=== PATIENT | female | born 1990 | race African-American/Black ===

== ENCOUNTER 2017-10-13 01:52 | Emergency (ER) | payer BC ==
[2017-10-13] MEDS ORDERED: 0.9 % SODIUM CHLORIDE 1,000 ML IV ONE ×2 (01:58→02:21)
[2017-10-13] MEDS ORDERED: ONDANSETRON HCL/PF 4 MG/ 2ML VIAL IVP ONE (02:21)
[2017-10-13 02:33] LABS: BASOPHILS % 0.3 (0.0-1.5); EOSINOPHILS % 1.7 % (0.0-6.8); MEAN CORPUSCULAR HEMOGLOBIN 33.7 pg (28.0-34.0); MEAN CORPUSCULAR VOLUME 100.9 fl (80.0-100.0); MONOCYTES % 3.2 % (0.0-11.0); NEUTROPHILS # 6.8 # k/uL (1.4-7.7)
[2017-10-13 02:43] LABS: eGFR (African) > 60; eGFR (Non-African) > 60
--- NOTE | 2017-10-13 03:31 | ED Physician Documentation ---
General Adult - HISTORIAN Historian: patient - HPI Stated Complaint: dizzy Chief Complaint: General Adult Further Comments: yes (27 year old female patient presents with complaints of dizziness and nausea. Patient states she got up late for work tonight, didn't eat, went to work and became dizzy and nauseated.) - ROS CONST: recent illness (Flu - 2 weeks ago). denies: fever, sweating, chills EYES/ENT: nasal congestion. denies: problems with vision, sore throat, nasal drainage CVS/RESP: none GI/: nausea. denies: abdominal pain, problems urinating, vomiting, diarrhea MS/SKIN/LYMPH: none NEURO/PSYCH: denies: headache - PAST HX Past History: none Allergies/Adverse Reactions: Allergies Allergy/AdvReac Type Severity Reaction Status Date / Time No Known Allergies Allergy Verified 10/13/17 02:43 Home Medications: Ambulatory Orders Medication Instructions Recorded NK [NK] 10/13/17 - SOCIAL HX Smoking History: cigarettes - FAMILY HX Family History: No - VITAL SIGNS Vital Signs: Vital Signs Temp Pulse Resp BP Pulse Ox 98.1 F 84 16 156/80 98 10/13/17 01:52 10/13/17 01:52 10/13/17 01:52 10/13/17 01:52 10/13/17 01:52 - REVIEWED ASSESSMENTS Nursing Assessment Reviewed: Yes Vitals Reviewed: Yes ED Results Lab/Radiology - Lab Results Lab Results: Lab Results 10/13/17 10/13/17 02:27 02:27 WBC 8.30 K/ul K/ul (4.00-12.00) RBC 4.14 M/ul M/ul (3.90-5.20) Hgb 14.0 g/dL g/dL (12.0-16.0) Hct 41.8 % % (34.5-46.5) MCV 100.9 fl H fl (80.0-100.0) MCH 33.7 pg pg (28.0-34.0) MCHC 33.4 g/dL g/dL (30.0-36.0) RDW 12.7 % % (11.3-14.3) Plt Count 207 K/mm3 K/mm3 (130-400) Neut % (Auto) 82.2 % H % (39.0-79.0) Lymph % (Auto) 11.5 % L % (16.0-50.0) [place] % (Auto) 3.2 % % (0.0-11.0) Eos % (Auto) 1.7 % % (0.0-6.8) Baso % (Auto) 0.3 (0.0-1.5) Neut # (Auto) 6.8 # k/uL # k/uL (1.4-7.7) Lymph # (Auto) 1.0 # k/uL # k/uL (0.6-4.0) [place] # (Auto) 0.3 # k/uL # k/uL (0.0-0.9) Eos # (Auto) 0.1 # k/uL # k/uL (0.0-0.6) Baso # (Auto) 0.0 # k/uL # k/uL (0.0-0.5) Reactive Lymphs % 1.0 % % (0.0-5.0) Reactive Lymphs # 0.1 # k/uL # k/uL (0.0-0.8) Sodium 139 mmol/L mmol/L (136-145) Potassium 4.0 mmol/L mmol/L (3.5-5.1) Chloride 102 mmol/L mmol/L (98-107) Carbon Dioxide 24 mmol/L mmol/L (22-30) BUN 5 mg/dL L mg/dL (7-17) Creatinine 0.70 mg/dL mg/dL (0.52-1.04) Estimated Creat Clear 133 Est GFR ( Amer) > 60 (60 - ) Est GFR (Non-Af Amer) > 60 (60 - ) Glucose 87 mg/dL mg/dL (74-106) Calcium 9.6 mg/dL mg/dL (8.4-10.2) Total Bilirubin 1.5 mg/dL H mg/dL (0.2-1.3) AST 30 U/L U/L (15-46) ALT 23 U/L U/L (13-69) Alkaline Phosphatase 94 U/L U/L (38-126) Total Protein 8.7 g/dL H g/dL (6.3-8.2) Albumin 5.0 g/dL g/dL (3.5-5.0) - Orders Orders: ED Orders Category Date Time Status Place IV Lock 1T Care 10/13/17 02:21 Active CBC/PLATELET/DIFF Routine Lab 10/13/17 02:27 Completed CMP Routine Lab 10/13/17 02:27 Completed UA [URINALYSIS] Routine Lab 10/13/17 Ordered URINE HCG Stat Lab 10/13/17 02:21 Uncollected 0.9 % Sodium Chloride [Normal Saline] 1,000 ml Med 10/13/17 01:58 Discontinued IV .STK-MED 0.9 % Sodium Chloride [Normal Saline] 1,000 ml Med 10/13/17 02:21 Discontinued IV Q1H Ondansetron HCl/Pf [Zofran 4 mg/2 ml] Med 10/13/17 02:21 Discontinued 4 mg IVP NOW ONE General Adult Physical Exam - PHYSICAL EXAM GENERAL APPEARANCE: [id number] N EENT: eye inspection normal, LUISANA RESPIRATORY: no resp distress, chest non-tender, breath sounds normal CVS: reg rate & rhythm, heart sounds normal, equal pulses, no murmur, no gallop , PMI nml, no JVD, no friction rub, 24 ABDOMEN: soft, no organomegaly, normal bowel sounds, no abdominal bruit, no distension SKIN: normal color, warm/dry, NR, INT, PAL, DR EXTREMITIES: non-tender, normal range of motion, no evidence of injury, no edema , J, 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
[2017-10-13 03:48] VITALS: BP 134/76
[2017-10-13 06:06] LABS: APPEARANCE,URINE CLEAR (CLEAR); COLOR,URINE YELLOW (YELLOW); OCCULT BLOOD,URINE TRACE-INTACT (NEGATIVE); PH URINE 7.5 (5.0 - 8.0); URINE HCG NEGATIVE (NEGATIVE); UROBILINOGEN URINE 0.2 Eu (0.2-1.0)
== END 2017-10-13 03:39 | disposition home or self-care (01) ==
LOC: ED 01:52
DX: R42 Dizziness and giddiness (principal)
CPT/HCPCS: 80053; 81002; 81025; 85025; J7030; 96365; 96375; 99282; 99283; S1016

== ENCOUNTER 2018-10-31 08:22 | Emergency (ER) | payer BC ==
[2018-10-31] MEDS ORDERED: IBUPROFEN 200 MG TABLET PO ONE (08:36)
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
[2018-10-31 09:03] VITALS: BP 130/69
== END 2018-10-31 08:50 | disposition home or self-care (01) ==
LOC: ED 08:22
DX: M25.551 Pain in right hip (principal)
CPT/HCPCS: 99282; 99283